=== PATIENT | female | born 1985 ===

== ENCOUNTER 2017-02-24 08:52 | Emergency (ER) | payer MEDICAID ==
[2017-02-24 09:08] VITALS: BMI 36.9
[2017-02-24 09:16] VITALS: RESP 20
[2017-02-24] MEDS ORDERED: Naproxen 550 mg Tab PO STA (09:25)
[2017-02-24] MEDS ORDERED: Naproxen 550 mg Tab PO ONE (09:32)
--- NOTE | 2017-02-24 10:04 | C.PDOC ---
History Of Present Illness 31 y/o female presents to the ER for evaluation of non-productive cough, congestion, fever, chills, and sore throat which have been present for 3 days. Patient also reports having body aches and ear aches for 3 days. Patient denies having any other medical complaints. Time Seen by Provider: 02/24/17 09:07 Chief Complaint (Nursing): Flu-like Symptoms History Per: Patient History/Exam Limitations: no limitations Onset/Duration Of Symptoms: Days Current Symptoms Are (Timing): Still Present Associated Symptoms: Fever, Chills, Sore Throat, Cough, Nasal Congestion Severity: Moderate Past Medical History Reviewed: Historical Data, Nursing Documentation, Vital Signs Vital Signs: Last Vital Signs Temp 97.6 F 02/24/17 10:06 Pulse 110 H 02/24/17 10:06 Resp 20 02/24/17 10:06 BP 132/86 02/24/17 10:06 Pulse Ox 98 02/24/17 10:06 - Medical History PMH: Migraine Surgical History: Cholecystectomy Family History: States: No Known Family Hx - Social History Hx Tobacco Use: No Hx Alcohol Use: Yes Hx Substance Use: No - Immunization History Hx Tetanus Toxoid Vaccination: No Hx Influenza Vaccination: No Hx Pneumococcal Vaccination: No Review Of Systems Except As Marked, All Systems Reviewed And Found Negative. Constitutional: Positive for: Fever, Chills, Malaise ENT: Positive for: Nose Congestion, Throat Pain Respiratory: Positive for: Cough (non-productive cough) Physical Exam - Physical Exam Appears: Non-toxic, No Acute Distress, Other (uncomfortable, speaking intermittently) Skin: Normal Color, Warm Head: Atraumatic, Normacephalic Eye(s): bilateral: Normal Inspection, PERRL Ear(s): Bilateral: Normal Nose: Normal Oral Mucosa: Moist Throat: Erythema (mild pharyngeal erythema) Neck: Supple Chest: Symmetrical Cardiovascular: Rhythm Regular Respiratory: Normal Breath Sounds, No Accessory Muscle Use, No Wheezing Gastrointestinal/Abdominal: Normal Exam, Soft, No Tenderness Extremity: Normal ROM Neurological/Psych: Oriented x3, Normal Speech, Normal Cognition, Normal Motor, Normal Sensation ED Course And Treatment O2 Sat by Pulse Oximetry: 97 (RA) Pulse Ox Interpretation: Normal Progress Note: Influenza A B Stat ordered. Patient given Naproxen, Sudafed, and Tamiflu. Disposition Counseled Patient/Family Regarding: Studies Performed, Diagnosis, Need For Followup, Rx Given - Disposition Referrals: Dennis Humphrey MD [Staff Provider] - Disposition: HOME/ ROUTINE Disposition Time: 10:05 Condition: STABLE Additional Instructions: FOLLOW UP WITH YOUR DOCTOR IN 1-2 DAYS DRINK PLENTY OF FLUIDS AND GET REST USE MEDICATIONS DIRECTED RETURN TO ER IF SYMPTOMS WORSEN Prescriptions: Benzonatate [Tessalon Perles] 100 mg PO BID PRN #15 sgl PRN Reason: Cough Naproxen 375 mg PO BID PRN #20 tablet PRN Reason: pain Oseltamivir Phosphate [Tamiflu] 75 mg PO BID #10 capsule Pseudoephedrine [Sudafed] 60 mg PO Q6 PRN #12 tab PRN Reason: Nasal Congestion Instructions: Influenza (ED) Forms: [facility] (Kyrgyz), Work Excuse Print Language: ESTONIAN - POA Present On Arrival: None - Clinical Impression Clinical Impression: Influenza A - Scribe Statement The provider has reviewed the documentation as recorded by the Wayne Vogel Provider Attestation: All medical record entries made by the Wayne were at my direction and personally dictated by me. I have reviewed the chart and agree that the record accurately reflects my personal performance of the history, physical exam, medical decision making, and the department course for this patient. I have also personally directed, reviewed, and agree with the discharge instructions and disposition.
[2017-02-24 10:07] VITALS: BP 132/86; PULSE 110; TEMP 97.6
[2017-02-24 10:55] VITALS: O2SAT 97
== END 2017-02-24 10:19 | disposition home or self-care (01) ==
LOC: C.ER 08:52
DX: J10.1 Influenza due to other identified influenza virus with other respiratory manifestations (principal)

== ENCOUNTER 2017-04-06 10:01 | Emergency (ER) | payer MEDICAID ==
[2017-04-06 10:01] VITALS: BMI 36.9
[2017-04-06 10:39] VITALS: TEMP 98; O2SAT 98
--- NOTE | 2017-04-06 11:18 | C.PDOC ---
History Of Present Illness 32 y/o female presents to the ER complaining of fever and body aches which have been present for the past 4 days. Patient states that she had some diarrhea last night. Patient denies having nausea and vomiting. Time Seen by Provider: 04/06/17 11:03 Chief Complaint (Nursing): Flu-like Symptoms History Per: Patient History/Exam Limitations: no limitations Onset/Duration Of Symptoms: Days Current Symptoms Are (Timing): Still Present Associated Symptoms: Fever Severity: Moderate Past Medical History Reviewed: Historical Data, Nursing Documentation, Vital Signs Vital Signs: Last Vital Signs Temp 98 F 04/06/17 10:36 Pulse 78 04/06/17 11:29 Resp 16 04/06/17 11:29 BP 132/75 04/06/17 11:29 Pulse Ox 98 04/06/17 11:32 - Medical History PMH: Migraine Surgical History: Cholecystectomy Family History: States: No Known Family Hx - Social History Hx Tobacco Use: No Hx Alcohol Use: Yes Hx Substance Use: No - Immunization History Hx Tetanus Toxoid Vaccination: No Hx Influenza Vaccination: No Hx Pneumococcal Vaccination: No Review Of Systems Except As Marked, All Systems Reviewed And Found Negative. Constitutional: Positive for: Fever, Malaise Gastrointestinal: Positive for: Diarrhea. Negative for: Nausea, Vomiting Physical Exam - Physical Exam Additional Physical Exam Comments: Constitutional: No acute distress. Head: Normocephalic. Atraumatic. Eyes: PERRL. ENT: Moist mucous membranes.Nasal congestion. Neck: Supple. Cardiovascular: Regular rate. Radial pulse 2+ bilaterally. Chest: No tenderness. Respiratory: Clear to auscultation bilaterally. GI: Soft. Nontender. Nondistended. Back: No CVA tenderness. Musculoskeletal: No tenderness or swelling of extremities. Skin: No rash. Neurologic: Alert, no focal deficit. ED Course And Treatment O2 Sat by Pulse Oximetry: 98 (RA) Pulse Ox Interpretation: Normal Disposition - Disposition Disposition Time: 11:15 Prescriptions: Guaifenesin [Mucinex] 1,200 mg PO BID #18 tab.er.12h Ibuprofen [Motrin] 600 mg PO Q6 #25 tab Instructions: Upper Respiratory Infection (ED) Forms: [facility] (Vietnamese), Work Excuse - Clinical Impression Clinical Impression: Influenza-like illness - Scribe Statement The provider has reviewed the documentation as recorded by the Wayne Vogel Provider Attestation: All medical record entries made by the Wayne were at my direction and personally dictated by me. I have reviewed the chart and agree that the record accurately reflects my personal performance of the history, physical exam, medical decision making, and the department course for this patient. I have also personally directed, reviewed, and agree with the discharge instructions and disposition.
--- NOTE | 2017-04-06 11:23 | C.PDOC ---
History Of Present Illness 32 y/o female presents to the ER complaining of fever and body aches which have been present for the past 4 days. Patient states that she had some diarrhea last night. Patient denies having nausea and vomiting. Time Seen by Provider: 04/06/17 11:03 Chief Complaint (Nursing): Flu-like Symptoms History Per: Patient History/Exam Limitations: no limitations Onset/Duration Of Symptoms: Days Current Symptoms Are (Timing): Still Present Associated Symptoms: Fever, Diarrhea Severity: Moderate Past Medical History Reviewed: Historical Data, Nursing Documentation, Vital Signs Vital Signs: Last Vital Signs Temp 98 F 04/06/17 10:36 Pulse 78 04/06/17 11:29 Resp 16 04/06/17 11:29 BP 132/75 04/06/17 11:29 Pulse Ox 98 04/06/17 11:32 - Medical History PMH: Migraine Surgical History: Cholecystectomy Family History: States: No Known Family Hx - Social History Hx Tobacco Use: No Hx Alcohol Use: Yes Hx Substance Use: No - Immunization History Hx Tetanus Toxoid Vaccination: No Hx Influenza Vaccination: No Hx Pneumococcal Vaccination: No Review Of Systems Except As Marked, All Systems Reviewed And Found Negative. Constitutional: Positive for: Fever, Malaise Gastrointestinal: Positive for: Diarrhea. Negative for: Nausea, Vomiting Physical Exam - Physical Exam Additional Physical Exam Comments: Constitutional: No acute distress. Head: Normocephalic. Atraumatic. Eyes: PERRL. ENT: Moist mucous membranes.Nasal Congestion. Neck: Supple. Cardiovascular: Regular rate. Radial pulse 2+ bilaterally. Chest: No tenderness. Respiratory: Clear to auscultation bilaterally. GI: Soft. Nontender. Nondistended. Back: No CVA tenderness. Musculoskeletal: No tenderness or swelling of extremities. Skin: No rash. Neurologic: Alert, no focal deficit. ED Course And Treatment O2 Sat by Pulse Oximetry: 98 (RA) Pulse Ox Interpretation: Normal Disposition - Disposition Disposition: HOME/ ROUTINE Disposition Time: 12:00 Condition: STABLE Prescriptions: Guaifenesin [Mucinex] 1,200 mg PO BID #18 tab.er.12h Ibuprofen [Motrin] 600 mg PO Q6 #25 tab Instructions: Upper Respiratory Infection (ED) Forms: [facility] (Macedonian), Work Excuse - Clinical Impression Clinical Impression: Influenza-like illness - PA / [employer] / Resident Statement / has reviewed & agrees with the documentation as recorded. - Scribe Statement The provider has reviewed the documentation as recorded by the Natalieibcarolina Vogel Provider Attestation: All medical record entries made by the Natalieibcarolina were at my direction and personally dictated by me. I have reviewed the chart and agree that the record accurately reflects my personal performance of the history, physical exam, medical decision making, and the department course for this patient. I have also personally directed, reviewed, and agree with the discharge instructions and disposition.
[2017-04-06 11:30] VITALS: BP 132/75; PULSE 78; RESP 16
== END 2017-04-06 11:29 | disposition home or self-care (01) ==
LOC: C.ER 10:01
DX: J11.1 Influenza due to unidentified influenza virus with other respiratory manifestations (principal)